=== PATIENT | female | born 1995 | race Caucasian/White ===

== ENCOUNTER 2017-11-15 23:58 | Emergency (ER) | payer MEDICAID ==
[~2017-11-15] VITALS: Ht 165.1 cm; Wt 69.0 kg
[~2017-11-15 23:58] MED LIST: PREN-127 PO
[2017-11-16 04:50] VITALS: BP 115/64
[2017-11-16] MEDS ORDERED: ACETAMINOPHEN 325MG TABLET PO ONE (05:00)
[2017-11-16 05:02] LABS: BASOPHILS % 0.4 % (0.0-2.0); EOSINOPHILS % 0.9 % (0.0-5.0); HEMATOCRIT. 35.5 % (36.0-48.0); HEMOGLOBIN. 12.4 g/dL (12.0-16.0); LYMPHOCYTES % 40.1 % (20.0-50.0); MEAN CORPUSCULAR HEMOGLOBIN 29.3 pg (28.0-32.0); NEUTROPHILS % 51.6 % (40.0-76.0); PLATELET 204 x1000/uL (130-400); RED BLOOD CELL COUNT 4.22 mill/uL (4.2-5.4); RED CELL DISTRIBUTION WIDTH 13.5 % (11.6-14.6)
[2017-11-16 05:07] LABS: CHLORIDE 107 mEq/L (98-107)
[2017-11-16 05:52] LABS: B-HCG QUANTITATIVE 69904 mIU/mL (<3)
== END 2017-11-16 06:40 | disposition left against medical advice (07) ==
LOC: ER 11-16 03:53
DX: O26.891 Other specified pregnancy related conditions, first trimester (principal); R10.30 Lower abdominal pain, unspecified; O21.8 Other vomiting complicating pregnancy; Z3A.01 Less than 8 weeks gestation of pregnancy; Z90.49 Acquired absence of other specified parts of digestive tract
CPT/HCPCS: 36415; 80053; 81025; 84702; 85025; 99284

== ENCOUNTER 2018-03-28 10:23 | Observation (INO) | payer MEDICAID ==
[~2018-03-28] VITALS: Ht 167.6 cm; Wt 63.0 kg
[2018-03-28 12:01] LABS: CLARITY URINE TURBID (CLEAR); COLOR URINE YELLOW (YELLOW); KETONES URINE NEGATIVE (NEGATIVE); LEUKOCYTE ESTERASE URINE NEGATIVE (NEGATIVE); NITRITE URINE NEGATIVE (NEGATIVE); OCCULT BLOOD URINE 2+ (NEGATIVE); PH URINE 8.5 (4.5-8.0); PROTEIN URINE NEGATIVE (NEGATIVE); SPECIFIC GRAVITY URINE 1.018 (1.005-1.030)
== END 2018-03-28 13:20 | disposition home or self-care (01) ==
LOC: L&D 10:23
PROVIDERS: ADMIT Specialist; ATTEND Specialist
DX: O26.892 Other specified pregnancy related conditions, second trimester (principal); R10.30 Lower abdominal pain, unspecified; Z3A.27 27 weeks gestation of pregnancy
CPT/HCPCS: 81003; 99281; G0378

== ENCOUNTER 2018-06-21 06:26 | Inpatient (IN) | payer MEDICAID ==
[~2018-06-21] VITALS: Ht 160 cm; Wt 67.6 kg
[2018-06-21] MEDS ORDERED: DEXT 5%/LR + PITOCIN 20UNITS/L 1,000 ML IV SCH ×2 (06:58→07:34)
[2018-06-21] MEDS ORDERED: LACTATED RINGERS 1,000 ML IV SCH (06:58)
[2018-06-21] MEDS ORDERED: CARBOPROST TROMETHAMINE 250 MCG/ML AMPUL IM PRN (07:00)
[2018-06-21] MEDS ORDERED: MISOPROSTOL 200MCG TABLET VG SCH (07:00)
[2018-06-21] MEDS ORDERED: PENICILLIN G POTASSIUM 5 MMU in DEXT 5% WATER 100 ML IV SCH (07:00)
[2018-06-21] MEDS ORDERED: BUTORPHANOL TARTRATE 2 MG/ML VIAL IV PRN (07:00)
[2018-06-21] MEDS ORDERED: NALOXONE HCL 0.4 MG/ML 1ML VIAL IM PRN (07:00)
[2018-06-21] MEDS ORDERED: METHYLERGONOVINE MALEATE 0.2 MG/ML IM PRN ×2 (07:00→07:45)
[2018-06-21 07:19] LABS: BASOPHILS % 0.7 % (0.0-2.0); EOSINOPHILS % 0.4 % (0.0-5.0); HEMOGLOBIN. 12.7 g/dL (12.0-16.0); LYMPHOCYTES % 29.8 % (20.0-50.0); MEAN CORPUSCULAR HEMOGLOBIN 29.9 pg (28.0-32.0); MEAN CORPUSCULAR VOLUME 86.9 fL (81.0-99.0); MEAN PLATELET VOLUME 10.2 fl (7.4-10.4); MONOCYTES % 6.8 % (2.0-8.0); NEUTROPHILS % 62.3 % (40.0-76.0); PLATELET 214 x1000/uL (130-400); RED BLOOD CELL COUNT 4.26 mill/uL (4.2-5.4); RED CELL DISTRIBUTION WIDTH 13.5 % (11.6-14.6)
[2018-06-21 07:40] LABS: INR 0.9; PARTIAL THROMBOPLASTIN TIME 27.8 sec (23.4-31.0); PROTHROMBIN TIME 9.1 sec (9.1-11.1)
[2018-06-21] MEDS ORDERED: LANOLIN OINT 0.25 GM TUBE TOP PRN (07:45)
[2018-06-21] MEDS ORDERED: HEMORRHOIDAL SUPP PR PRN (07:45)
[2018-06-21] MEDS ORDERED: BENZOCAINE/LANOLIN/ALOE VERA SPRAY TOP PRN (07:45)
[2018-06-21] MEDS ORDERED: GLYCERIN/WITCH HAZEL LEAF MEDICATED PAD TOP PRN (07:45)
[2018-06-21] MEDS ORDERED: DIPHENHYDRAMINE 25MG CAPSULE PO PRN (07:45)
[2018-06-21] MEDS ORDERED: IBUPROFEN 400MG TABLET PO PRN (07:45)
[2018-06-21] MEDS: IBUPROFEN 800MG TABLET PO PRN ×2 (08:02→17:44)
[2018-06-21 08:08] LABS: HEPATITIS B SURFACE ANTIGEN NEGATIVE
[2018-06-21 09:00] VITALS: BP 111/54
[2018-06-21 09:30] VITALS: BP 115/68
[2018-06-21 10:00] VITALS: BP 115/64
[2018-06-21] MEDS ORDERED: TETANUS, DIPHTHERIA, PERTUSSIS VAC/PF 0.5ML (>7YR OLD) IM ONE (10:00)
[2018-06-21] MEDS ORDERED: PENICILLIN G POTASSIUM 2.5 MMU in DEXTROSE 5% WATER 50 ML IV SCH (11:30)
[2018-06-21 14:26] LABS: CLARITY URINE CLEAR (CLEAR); COLOR URINE YELLOW (YELLOW); KETONES URINE NEGATIVE (NEGATIVE); LEUKOCYTE ESTERASE URINE 1+ (NEGATIVE); NITRITE URINE NEGATIVE (NEGATIVE); OCCULT BLOOD URINE 3+ (NEGATIVE); PH URINE 7.5 (4.5-8.0); PROTEIN URINE NEGATIVE (NEGATIVE); SPECIFIC GRAVITY URINE 1.007 (1.005-1.030); UROBILINOGEN URINE 0.2 E.U./dL (0.2-1.0)
[2018-06-21] MEDS ORDERED: OXYTOCIN 10 UNITS/ML 1ML ONE (14:26)
[2018-06-21] MEDS ORDERED: METHYLERGONOVINE MALEATE 0.2 MG/ML ONE (14:26)
[2018-06-21] MEDS ORDERED: INFLUENZA VIRUS VACCINE(AFLURIA) 0.5ML SYR IM ONE (15:00)
[2018-06-21 15:37] LABS: *AMPHETAMINES SCREEN URINE NEGATIVE (NEGATIVE); *BARBITURATES SCREEN URINE NEGATIVE (NEGATIVE); *BENZODIAZEPINES SCREEN URINE NEGATIVE (NEGATIVE); *COCAINE SCREEN URINE NEGATIVE (NEGATIVE); METHADONE URINE SCREEN NEGATIVE (NEGATIVE); OPIATES URINE SCREEN NEGATIVE (NEGATIVE)
[2018-06-21 15:39] LABS: CANNABINOID URINE SCREEN NEGATIVE (NEGATIVE); PHENCYCLIDINE URINE SCREEN NEGATIVE (NEGATIVE)
[2018-06-21 16:16] VITALS: BP 107/60
[2018-06-21] MEDS: SIMETHICONE 80MG TABLET CHEW PO SCH (21:00)
[2018-06-21] MEDS: DOCUSATE SODIUM 100MG CAPSULE PO SCH (21:00)
[2018-06-22 04:15] VITALS: BP 99/59
[2018-06-22 07:20] LABS: BASOPHILS % 0.5 % (0.0-2.0); EOSINOPHILS % 0.3 % (0.0-5.0); HEMATOCRIT. 35.1 % (36.0-48.0); LYMPHOCYTES % 23.3 % (20.0-50.0); MEAN CORPUSCULAR VOLUME 87.9 fL (81.0-99.0); MONOCYTES % 6.3 % (2.0-8.0); NEUTROPHILS % 69.6 % (40.0-76.0); PLATELET 179 x1000/uL (130-400); RED BLOOD CELL COUNT 3.99 mill/uL (4.2-5.4); RED CELL DISTRIBUTION WIDTH 13.4 % (11.6-14.6)
[2018-06-22 07:36] VITALS: BP 100/56
[2018-06-22] MEDS: SIMETHICONE 80MG TABLET CHEW PO SCH ×4 (07:59→22:22)
[2018-06-22] MEDS: IBUPROFEN 800MG TABLET PO PRN ×2 (07:59→18:09)
[2018-06-22] MEDS: FERROUS SULFATE 325MG TABLET PO SCH ×3 (07:59→18:09)
[2018-06-22] MEDS: PRENATAL VIT/FE FUMARATE/FA TABLET PO SCH (07:59)
[2018-06-22 16:11] VITALS: BP 102/55
[2018-06-22 19:35] VITALS: BP 99/67
[2018-06-22] MEDS: DOCUSATE SODIUM 100MG CAPSULE PO SCH (22:22)
[2018-06-22 23:35] VITALS: BP 102/62
[2018-06-23 04:09] VITALS: BP 101/63
[2018-06-23 07:40] VITALS: BP 97/52
[2018-06-23] MEDS: PRENATAL VIT/FE FUMARATE/FA TABLET PO SCH (08:35)
[2018-06-23] MEDS: IBUPROFEN 800MG TABLET PO PRN (08:35)
[2018-06-23] MEDS: FERROUS SULFATE 325MG TABLET PO SCH (08:36)
[2018-06-23] MEDS: SIMETHICONE 80MG TABLET CHEW PO SCH (08:36)
== END 2018-06-23 12:05 | disposition home or self-care (01) | DRG 560 ==
LOC: 8 EST LDRP 06:26 → OBSVTOIN 07:24 → 8EST 08:55
PROVIDERS: ADMIT Specialist; ATTEND Specialist
PROC: 10E0XZZ Delivery of Products of Conception, External Approach (ICD-10-PCS; principal; 2018-06-21)
DX: O80 Encounter for full-term uncomplicated delivery (principal); Z37.0 Single live birth; Z3A.38 38 weeks gestation of pregnancy
CPT/HCPCS: 36415; 80305; 86592; 86703; 86762; 86850; 86900; 87340; 99281; G0378; J2210; J2540; J2590; J7060; J7120

== ENCOUNTER 2019-06-01 00:17 | Inpatient (IN) | payer MEDICAID ==
[~2019-06-01] VITALS: Ht 167.6 cm; Wt 76.7 kg
[2019-06-01] MEDS ORDERED: LACTATED RINGERS 1,000 ML IV SCH (01:38)
[2019-06-01] MEDS ORDERED: DEXT 5%/LR + PITOCIN 20UNITS/L 1,000 ML IV SCH ×2 (01:38→04:34)
[2019-06-01] MEDS ORDERED: CARBOPROST TROMETHAMINE 250 MCG/ML AMPUL IM PRN (01:45)
[2019-06-01] MEDS ORDERED: NALOXONE HCL 0.4 MG/ML 1ML VIAL IM PRN (01:45)
[2019-06-01] MEDS ORDERED: METHYLERGONOVINE MALEATE 0.2 MG/ML IM PRN (01:45)
[2019-06-01] MEDS ORDERED: ROPIVACAINE HCL/PF EPIDURAL 200 ML EPI PRN (02:45)
[2019-06-01] MEDS ORDERED: ROPIVACAINE HCL 2MG/ML (0.2%) 200ML BOTTLE IR ONE (02:45)
[2019-06-01 02:52] LABS: BASOPHILS % 0.2 % (0.0-2.0); EOSINOPHILS % 0.2 % (0.0-5.0); HEMATOCRIT. 36.1 % (36.0-48.0); HEMOGLOBIN. 12.4 g/dL (12.0-16.0); LYMPHOCYTES % 19.3 % (20.0-50.0); MEAN CORPUSCULAR VOLUME 84.5 fL (81.0-99.0); MEAN PLATELET VOLUME 10.4 fl (7.4-10.4); MONOCYTES % 7.2 % (2.0-8.0); NEUTROPHILS % 73.1 % (40.0-76.0); PLATELET 212 x1000/uL (130-400); RED BLOOD CELL COUNT 4.27 mill/uL (4.2-5.4); RED CELL DISTRIBUTION WIDTH 14.1 % (11.6-14.6)
[2019-06-01 03:03] LABS: CLARITY URINE CLEAR (CLEAR); COLOR URINE YELLOW (YELLOW); KETONES URINE NEGATIVE (NEGATIVE); LEUKOCYTE ESTERASE URINE NEGATIVE (NEGATIVE); NITRITE URINE NEGATIVE (NEGATIVE); OCCULT BLOOD URINE NEGATIVE (NEGATIVE); PROTEIN URINE NEGATIVE (NEGATIVE); SPECIFIC GRAVITY URINE 1.002 (1.005-1.030); UROBILINOGEN URINE 0.2 E.U./dL (0.2-1.0)
[2019-06-01 03:12] LABS: *BARBITURATES SCREEN URINE NEGATIVE (NEGATIVE)
[2019-06-01 03:13] LABS: *AMPHETAMINES SCREEN URINE NEGATIVE (NEGATIVE); *BENZODIAZEPINES SCREEN URINE NEGATIVE (NEGATIVE); *COCAINE SCREEN URINE NEGATIVE (NEGATIVE); METHADONE URINE SCREEN NEGATIVE (NEGATIVE); OPIATES URINE SCREEN NEGATIVE (NEGATIVE); PHENCYCLIDINE URINE SCREEN NEGATIVE (NEGATIVE)
[2019-06-01 03:14] LABS: CANNABINOID URINE SCREEN NEGATIVE (NEGATIVE)
[2019-06-01] MEDS ORDERED: EPHEDRINE SULFATE 50MG/ML VIAL ONE (03:18)
[2019-06-01] MEDS ORDERED: BUPIVACAINE HCL/PF 0.25% (2.5MG/ML) 10ML ONE (03:18)
[2019-06-01] MEDS ORDERED: FENTANYL CITRATE/PF 50MCG/ML 2ML VIAL ONE (03:18)
[2019-06-01 03:20] LABS: INR 0.9; PARTIAL THROMBOPLASTIN TIME 29.2 sec (23.4-31.0); PROTHROMBIN TIME 9.1 sec (9.6-11.0)
[2019-06-01 03:49] LABS: HEPATITIS B SURFACE ANTIGEN NEGATIVE
[2019-06-01] MEDS ORDERED: RHO(D) IMMUNE GLOBULIN 300 MCG/SYR IM PRN (04:45)
[2019-06-01] MEDS ORDERED: IBUPROFEN 400MG TABLET PO PRN (04:45)
[2019-06-01 08:30] VITALS: BP 92/58
[2019-06-01 10:00] VITALS: BP 95/53
[2019-06-01] MEDS: IBUPROFEN 800MG TABLET PO PRN (18:48)
[2019-06-01 19:45] VITALS: BP 94/60
[2019-06-02 04:30] VITALS: BP 102/64
[2019-06-02 06:16] LABS: BASOPHILS % 0.5 % (0.0-2.0); EOSINOPHILS % 0.9 % (0.0-5.0); HEMATOCRIT. 33.3 % (36.0-48.0); HEMOGLOBIN. 11.2 g/dL (12.0-16.0); LYMPHOCYTES % 30.6 % (20.0-50.0); MEAN CORPUSCULAR VOLUME 86.1 fL (81.0-99.0); MEAN PLATELET VOLUME 10.2 fl (7.4-10.4); MONOCYTES % 5.6 % (2.0-8.0); NEUTROPHILS % 62.4 % (40.0-76.0); PLATELET 175 x1000/uL (130-400); RED BLOOD CELL COUNT 3.87 mill/uL (4.2-5.4); RED CELL DISTRIBUTION WIDTH 14.2 % (11.6-14.6)
[2019-06-02] MEDS: IBUPROFEN 800MG TABLET PO PRN ×2 (06:28→20:30)
[2019-06-02 08:30] VITALS: BP 97/56
[2019-06-02 16:41] VITALS: BP 118/66
[2019-06-02 20:30] VITALS: BP 109/73
[2019-06-03] MEDS: IBUPROFEN 800MG TABLET PO PRN (03:20)
[2019-06-03 04:25] VITALS: BP 101/64
[2019-06-03] MEDS ORDERED: IBUP-2030 PO (06:22)
[2019-06-03 07:45] VITALS: BP 110/72
== END 2019-06-03 11:25 | disposition home or self-care (01) | DRG 560 ==
LOC: OBSVTOIN 00:17 → 8 EST LDRP 00:17 → 8EST 08:00
PROVIDERS: ADMIT Obstetrics & Gynecology; ATTEND Obstetrics & Gynecology
PROC: 10E0XZZ Delivery of Products of Conception, External Approach (ICD-10-PCS; principal; 2019-06-01)
PROC: 3E0R3BZ Introduction of Anesthetic Agent into Spinal Canal, Percutaneous Approach (ICD-10-PCS; 2019-06-01)
PROC: 00HU33Z Insertion of Infusion Device into Spinal Canal, Percutaneous Approach (ICD-10-PCS; 2019-06-01)
DX: O80 Encounter for full-term uncomplicated delivery (principal); Z37.0 Single live birth; Z3A.38 38 weeks gestation of pregnancy
CPT/HCPCS: 36415; 80305; 81003; 86592; 86703; 86762; 86850; 86900; 87340; 99281; J2590; J2795; J3010; J3490; A4315

== ENCOUNTER 2023-08-12 01:01 | Emergency (ER) | payer MEDICAID ==
[~2023-08-12] VITALS: Ht 172.7 cm; Wt 68.0 kg
[~2023-08-12 01:01] MED LIST changes: +IBUP-2030 PO; -PREN-127 PO
[2023-08-12 01:03] VITALS: BP 112/60; PULSE 80; RESP 22; O2SAT 99
== END 2023-08-12 02:49 | disposition home or self-care (01) ==
LOC: ER 01:01
DX: T51.0X1A Toxic effect of ethanol, accidental (unintentional), initial encounter (principal); F43.0 Acute stress reaction; Y92.9 Unspecified place or not applicable
CPT/HCPCS: 99283